=== PATIENT | male | born 1990 | race Two or more races ===

== ENCOUNTER 2021-06-16 07:00 | Outpatient (CLI) | payer OTHER | END 2021-06-16 07:07 | disposition home or self-care (01) | LOC: LAB 07:00 | DX: Z20.818 Contact with and (suspected) exposure to other bacterial communicable diseases (principal); Z20.828 Contact with and (suspected) exposure to other viral communicable diseases ==

== ENCOUNTER 2022-09-03 12:13 | Emergency (ER) | payer OTHER ==
[~2022-09-03] VITALS: Ht 175.3 cm; Wt 88.9 kg
== END 2022-09-03 18:24 | disposition home or self-care (01) ==
LOC: ER 12:13
DX: A49.3 Mycoplasma infection, unspecified site (principal); Z20.822 Contact with and (suspected) exposure to COVID-19

== ENCOUNTER → 2023-03-08 | Outpatient (CLI) | payer OTHER | END | disposition home or self-care (01) | LOC: PPH VACUNA | PROVIDERS: ATTEND Emergency Medicine Pediatric Emergency Medicine | DX: Z23 Encounter for immunization (principal) ==

== ENCOUNTER 2023-05-11 07:59 | Outpatient (CLI) | payer OTHER | END 2023-05-11 08:08 | disposition home or self-care (01) | LOC: RX STUDY 07:59 | PROVIDERS: ATTEND Radiology Diagnostic Radiology | DX: R10.9 Unspecified abdominal pain (principal); K21.9 Gastro-esophageal reflux disease without esophagitis ==

== ENCOUNTER 2023-05-16 10:45 | Outpatient (CLI) | payer OTHER | END 2023-05-16 10:55 | disposition home or self-care (01) | LOC: SONOGRAMA 10:45 | PROVIDERS: ATTEND Internal Medicine Gastroenterology | DX: R10.9 Unspecified abdominal pain (principal) ==

== ENCOUNTER 2024-09-18 13:15 | Outpatient (CLI) | payer OTHER | END 2024-09-18 13:25 | disposition home or self-care (01) | LOC: PPH VACUNA 13:15 | PROVIDERS: ATTEND Emergency Medicine Pediatric Emergency Medicine | DX: Z23 Encounter for immunization (principal) ==